=== PATIENT | female | born 1975 | race African-American/Black ===

== ENCOUNTER 2023-12-06 14:09 | Inpatient (IN) | payer OTHER ==
[2023-12-06 14:16] VITALS: BMI 23.5
[2023-12-06 16:15] LABS: BASO % 0.7 % (0-2.0); EOS % 1.6 % (0-4.5); HEMATOCRIT 33.6 % (32.4-45.2); HEMOGLOBIN 11.3 GM/dL (10.7-15.3); LYMPH % 38.1 % (8-40); MCH 31.4 pg (25.7-33.7); MCHC 33.5 g/dl (32.0-36.0); MEAN CELL VOLUME 93.7 fl (80-96); MEAN PLT VOLUME 9.6 fl (7.5-11.1); MONO % 12.1 % (3.8-10.2); NEUT % 47.5 % (42.8-82.8); PLATELET COUNT 177 10^3/uL (134-434); RBC 3.58 M/mm3 (3.60-5.2); RDW 12.9 % (11.6-15.6); WHITE BLOOD COUNT 4.8 K/mm3 (4.0-10.0)
[2023-12-06 16:21] LABS: INR 1.04 (0.83-1.09); PROTHROMBIN TIME (PATIENT) 12.1 SEC (9.7-13.0)
[2023-12-06 16:24] LABS: ACTIVATED PTT 36.3 SECONDS (25.2-36.5)
[2023-12-06 17:13] LABS: ALBUMIN 3.6 g/dl (3.4-5.0); BILIRUBIN,TOTAL 0.4 mg/dL (0.2-1); BLOOD UREA NITROGEN 11.6 mg/dL (7-18); CALCIUM 8.7 mg/dL (8.5-10.1); CREATININE 0.7 mg/dL (0.55-1.3); N-TERMINAL BNP 60.5 pg/ml (5-125); POTASSIUM 3.9 mmol/L (3.5-5.1); TOT PROT 6.6 g/dl (6.4-8.2)
[2023-12-06 22:00] LABS: VENOUS BASE EXCESS -0.9 mmol/L (-2-2); VENOUS O2 SATURATION 68.8 % (70-80); VENOUS PCO2 47.8 mmHg (38-52); VENOUS PH 7.34 (7.310-7.410)
[2023-12-06] MEDS: ACETAMINOPHEN 1000 MG/100 ML BAG IVPB ONE (23:54)
[2023-12-07] MEDS ORDERED: traZODone HCL 100 MG TABLET (FP) ONE (00:56)
[2023-12-07] MEDS: traZODone HCL 100 MG TABLET (FP) PO SCH (01:03)
[2023-12-07 01:57] LABS: ARTERIAL BLD GAS O2 SATURATION 98.6 % (95-98); ARTERIAL BLOOD GAS BASE EXCESS 0.9 mmol/L (-2-2); ARTERIAL BLOOD GAS PO2 127.6 mmHg (80-100); ARTERIAL BLOOD GAS pH 7.412 (7.350-7.450)
[2023-12-07 02:01] LABS: ALLENS TEST POSITIVE
[2023-12-07] MEDS ORDERED: LIDOCAINE VISCOUS 2% ORAL/TOP 15 ML UNIT-DOSE CUP ONE (06:36)
[2023-12-07] MEDS ORDERED: MAG HYDROX/AL HYDROX/SIMETH 30 ML UNIT-DOSE CUP ONE (06:37)
[2023-12-07 06:40] LABS: HEMATOCRIT 33.1 % (32.4-45.2); HEMOGLOBIN 11.1 GM/dL (10.7-15.3); MCH 31.5 pg (25.7-33.7); MCHC 33.4 g/dl (32.0-36.0); MEAN CELL VOLUME 94.3 fl (80-96); MEAN PLT VOLUME 10.3 fl (7.5-11.1); PLATELET COUNT 186 10^3/uL (134-434); RBC 3.51 M/mm3 (3.60-5.2); WHITE BLOOD COUNT 4.4 K/mm3 (4.0-10.0)
[2023-12-07] MEDS ORDERED: PREGABALIN 50 MG CAPSULE ONE (06:44)
[2023-12-07] MEDS ORDERED: PREGABALIN 100 MG CAPSULE ONE (06:45)
[2023-12-07 06:46] LABS: CHLORIDE 108 mmol/L (98-107); POTASSIUM 3.6 mmol/L (3.5-5.1); SODIUM 142 mmol/L (136-145)
[2023-12-07] MEDS: PREGABALIN 50 MG CAPSULE PO SCH (06:47)
[2023-12-07 06:48] LABS: ANION GAP 7 mmol/L (4-13); BLOOD UREA NITROGEN 10.3 mg/dL (7-18); CALCIUM 8.6 mg/dL (8.5-10.1); CO2 28 mmol/L (21-32); GLUCOSE,RANDOM 85 mg/dL (74-106); MAGNESIUM 1.9 mg/dL (1.8-2.4)
[2023-12-07 06:49] LABS: ALBUMIN 3.2 g/dl (3.4-5.0)
[2023-12-07 06:51] LABS: PHOSPHOROUS 4.1 mg/dL (2.5-4.9); SGOT/AST 10 U/L (15-37); SGPT/ALT 12 U/L (13-61)
[2023-12-07 06:52] LABS: CREATININE 0.6 mg/dL (0.55-1.3)
[2023-12-07 06:53] LABS: BILIRUBIN,TOTAL 0.5 mg/dL (0.2-1)
[2023-12-07 06:54] LABS: ALK PHOS 53 U/L (45-117)
[2023-12-07] MEDS ORDERED: RAMIPRIL 5 MG CAPSULE ONE (10:43)
[2023-12-07] MEDS ORDERED: DULoxetine HCL 30 MG CAPSULE.DR PO ONE (10:44)
[2023-12-07] MEDS ORDERED: ENOXAPARIN NA (PORCINE) 40 MG/0.4 ML DISP.SYRIN SQ ONE (10:44)
[2023-12-07] MEDS ORDERED: CYCLOBENZAPRINE HCL 5 MG TABLET ONE (10:44)
[2023-12-07] MEDS: RAMIPRIL 5 MG CAPSULE PO SCH (11:01)
[2023-12-07] MEDS: CYCLOBENZAPRINE HCL 5 MG TABLET PO SCH (11:01)
[2023-12-07] MEDS: DULoxetine HCL 30 MG CAPSULE.DR PO SCH (11:02)
[2023-12-07] MEDS: ENOXAPARIN NA (PORCINE) 40 MG/0.4 ML DISP.SYRIN SQ SCH (11:02)
[2023-12-07] MEDS ORDERED: SUMAtriptan SUCCINATE 50 MG TABLET ONE (11:59)
[2023-12-07] MEDS: SUMAtriptan SUCCINATE 25 MG TABLET PO ONE (12:04)
[2023-12-07 13:58] VITALS: BP 114/73; PULSE 68; RESP 18; TEMP 97.9
== END 2023-12-07 15:00 | disposition home or self-care (01) | DRG 204 ==
LOC: JER 14:09 → JERBED 20:44 → OBSVTOIN 12-07 00:45
PROVIDERS: ADMIT Internal Medicine; ATTEND Internal Medicine
DX: R06.02 Shortness of breath (principal); I10 Essential (primary) hypertension; F41.8 Other specified anxiety disorders
CPT/HCPCS: 0241U-QW; 36415; 36600; 71046-TC-FY; 71275-TC; 80053; 82306; 82803; 83735; 83880; 84100; 84484; 84702; 85025; 85027; 85610; 85730; 93005; 93010; 93970-TC; 99285-25; G0378; J0131; Q9967